=== PATIENT | female | born 1955 | race Caucasian/White ===

== ENCOUNTER 2020-04-18 11:57 | Emergency (ER) | payer MEDICAID ==
[~2020-04-18] VITALS: Ht 147.3 cm; Wt 70.1 kg
[~2020-04-18 11:57] MED LIST: CAPT25TA3 PO
[2020-04-18 12:58] VITALS: BP 175/78
== END 2020-04-18 14:00 | disposition home or self-care (01) ==
LOC: EMS 11:59
DX: I10 Essential (primary) hypertension (principal); Z88.8 Allergy status to other drugs, medicaments and biological substances
CPT/HCPCS: 99283; Z7502